=== PATIENT | female | born 1980 | race Hispanic/Latino ===

== ENCOUNTER 2017-12-22 18:55 | Emergency (ER) | payer OTHER ==
[2017-12-22] MEDS ORDERED: ACETAMINOPHEN-CODEINE ELIXIR 5 ML UDCUP ONE (19:25)
[2017-12-22 19:26] LABS: BASOPHILS % (AUTO) 0.4 % (0.0-5.0); EOSINOPHILS % (AUTO) 3.2 % (0.0-8.0); LYMPHOCYTES % (AUTO) 27.9 % (21.0-51.0); MEAN CORPUSCULAR HEMOGLOBIN 28.9 pg (27.0-33.0); MEAN CORPUSCULAR VOLUME 82.6 fL (79-99); MONOCYTES % (AUTO) 5.9 % (3.0-13.0); NEUTROPHILS % (AUTO) 62.6 % (40.0-77.0); PLATELET COUNT (AUTO) 239 K/uL (130-400); RED BLOOD CELL COUNT(AUTO) 4.11 MIL/uL (4.00-5.50); RED CELL DISTRIBUTION WIDTH 14.3 % (11.0-15.5); WHITE BLOOD COUNT (AUTO) 12.3 K/uL (4.8-10.8)
[2017-12-22] MEDS ORDERED: SODIUM CHLORIDE 0.9% 100 ML IV ONE (19:26)
[2017-12-22 19:34] LABS: APPEARANCE,URINE Clear (CLEAR); BILIRUBIN,URINE Negative (NEGATIVE); COLOR,URINE Yellow (YELLOW); GLUCOSE, URINE (UA) Negative (NEGATIVE); KETONES,URINE Negative (NEGATIVE); LEUKOCYTE ESTERASE ,URINE Negative (NEGATIVE); NITRATE,URINE Negative (NEGATIVE); OCCULT BLOOD,URINE Negative (NEGATIVE); PH,URINE 6.5 (5.0-8.0); PROTEIN,URINE Negative (NEGATIVE)
[2017-12-22 19:35] LABS: CREATININE 0.8 mg/dL (0.5-1.5); POTASSIUM 3.7 mmol/L (3.5-5.1)
[2017-12-22 19:40] LABS: ALBUMIN 3.7 g/dL (3.5-5.0); BILIRUBIN,TOTAL 0.2 mg/dL (0.2-1.0); TOTAL PROTEIN, SERUM 7.5 g/dL (6.0-8.3)
[2017-12-22 19:42] LABS: AMPHET/METH SCREEN,URINE NEGATIVE (NEGATIVE); BARBITURATE SCREEN, URINE NEGATIVE (NEGATIVE); BENZODIAZEPINES SCREEN,URINE NEGATIVE (NEGATIVE); CANNABINOID SCREEN,URINE NEGATIVE (NEGATIVE); COCAINE SCREEN,URINE NEGATIVE (NEGATIVE); OPIATE SCREEN,URINE NEGATIVE (NEGATIVE); PHENCYCLIDINE SCREEN,URINE NEGATIVE (NEGATIVE)
== END 2017-12-22 21:58 | disposition home or self-care (01) ==
LOC: EDH 18:55
DX: S01.511A Laceration without foreign body of lip, initial encounter (principal); G40.909 Epilepsy, unspecified, not intractable, without status epilepticus; Z91.013 Allergy to seafood; X58.XXXA Exposure to other specified factors, initial encounter; Y93.89 Activity, other specified; Y92.89 Other specified places as the place of occurrence of the external cause; Y99.8 Other external cause status
CPT/HCPCS: 12051; 36415; 70450; 70486; 80053; 80305; 81003; 81025; 85025; 96365; 96366

== ENCOUNTER 2018-06-01 08:19 | Emergency (ER) | payer MEDICAID ==
[2018-06-01] MEDS ORDERED: FOSPHENYTOIN SODIUM 500 MG/10ML VIAL IJ ONE (11:01)
[2018-06-01] MEDS ORDERED: SODIUM CHLORIDE 0.9% 500ML 0 ML IV ONE (11:01)
[2018-06-01] MEDS ORDERED: SODIUM CHLORIDE 0.9% 250 ML IV ONE (11:04)
== END 2018-06-01 12:38 | disposition home or self-care (01) ==
LOC: EDH 08:19
DX: G40.909 Epilepsy, unspecified, not intractable, without status epilepticus (principal); S09.8XXA Other specified injuries of head, initial encounter; R89.2 Abnormal level of other drugs, medicaments and biological substances in specimens from other organs, systems and tissues; Z91.013 Allergy to seafood; X58.XXXA Exposure to other specified factors, initial encounter; Y93.89 Activity, other specified; Y92.89 Other specified places as the place of occurrence of the external cause; Y99.8 Other external cause status
CPT/HCPCS: 36415; 70450; 80185; 81025; 96365; 99285; J7030; Q2009; J7040

== ENCOUNTER 2018-06-10 17:53 | Emergency (ER) | payer MEDICAID ==
[2018-06-10 18:42] LABS: CREATININE 0.9 mg/dL (0.5-1.5)
[2018-06-10 18:46] LABS: ALBUMIN 3.9 g/dL (3.5-5.0); BILIRUBIN,TOTAL 0.2 mg/dL (0.2-1.0); PHENYTOIN (DILANTIN) 2.7 mcg/mL (10.0-20.0); TOTAL PROTEIN, SERUM 7.5 g/dL (6.0-8.3)
[2018-06-10 18:56] LABS: BASOPHILS % (AUTO) 0.7 % (0.0-5.0); EOSINOPHILS % (AUTO) 4.1 % (0.0-8.0); HEMATOCRIT 35.6 % (36-48); LYMPHOCYTES % (AUTO) 39.9 % (21.0-51.0); MEAN CORPUSCULAR HEMOGLOBIN 28.4 pg (27.0-33.0); MEAN CORPUSCULAR HGB CONC 34.3 g/dL (32.0-36.0); MEAN CORPUSCULAR VOLUME 82.8 fL (79-99); MONOCYTES % (AUTO) 7.8 % (3.0-13.0); NEUTROPHILS % (AUTO) 47.5 % (40.0-77.0); NUCLEATED RED BLOOD CELLS 0.1 % (0.0-0.19); PLATELET COUNT (AUTO) 233 K/uL (130-400); RED CELL DISTRIBUTION WIDTH 14.3 % (11.0-15.5); WHITE BLOOD COUNT (AUTO) 8.2 K/uL (4.8-10.8)
[2018-06-10] MEDS ORDERED: SODIUM CHLORIDE 0.9% IV ONE (21:00)
[2018-06-10] MEDS ORDERED: PHENYTOIN SODIUM IV ONE (21:00)
[2018-06-10] MEDS ORDERED: PHENYTOIN SODIUM 100 MG ERCAP PO ONE (21:04)
== END 2018-06-10 21:38 | disposition home or self-care (01) ==
LOC: EDH 17:53
DX: G40.802 Other epilepsy, not intractable, without status epilepticus (principal); M26.622 Arthralgia of left temporomandibular joint; M54.12 Radiculopathy, cervical region; S01.552A Open bite of oral cavity, initial encounter; S80.11XA Contusion of right lower leg, initial encounter; M79.602 Pain in left arm; Z91.013 Allergy to seafood; Z79.899 Other long term (current) drug therapy; Y04.1XXA Assault by human bite, initial encounter; Y93.01 Activity, walking, marching and hiking; Y92.090 Kitchen in other non-institutional residence as the place of occurrence of the external cause; Y99.8 Other external cause status
CPT/HCPCS: 36415; 72125; 80053; 80185; 85025; 96365; 99285; J1165

== ENCOUNTER 2018-08-30 14:04 | Emergency (ER) | payer MEDICAID, OTHER ==
[2018-08-30 14:41] LABS: BASOPHILS % (AUTO) 0.8 % (0.0-5.0); EOSINOPHILS % (AUTO) 2.9 % (0.0-8.0); HEMATOCRIT 37.2 % (36-48); LYMPHOCYTES % (AUTO) 30.7 % (21.0-51.0); MEAN CORPUSCULAR HEMOGLOBIN 28.8 pg (27.0-33.0); MEAN CORPUSCULAR VOLUME 84.6 fL (79-99); MONOCYTES % (AUTO) 5.4 % (3.0-13.0); NEUTROPHILS % (AUTO) 60.2 % (40.0-77.0); PLATELET COUNT (AUTO) 232 K/uL (130-400); RED CELL DISTRIBUTION WIDTH 13.6 % (11.0-15.5); WHITE BLOOD COUNT (AUTO) 7.2 K/uL (4.8-10.8)
[2018-08-30 14:56] LABS: CREATININE 0.7 mg/dL (0.5-1.5); POTASSIUM 4.1 mmol/L (3.5-5.1)
[2018-08-30 15:01] LABS: ALBUMIN 3.9 g/dL (3.5-5.0); BILIRUBIN,TOTAL 0.2 mg/dL (0.2-1.0); PHENYTOIN (DILANTIN) 5.5 mcg/mL (10.0-20.0); TOTAL PROTEIN, SERUM 7.9 g/dL (6.0-8.3)
[2018-08-30] MEDS ORDERED: PHENYTOIN SODIUM 100 MG ERCAP PO ONE (15:34)
[2018-08-30 15:43] LABS: APPEARANCE,URINE CLOUDY (CLEAR); BILIRUBIN,URINE NEGATIVE (NEGATIVE); GLUCOSE, URINE (UA) NEGATIVE (NEGATIVE); KETONES,URINE NEGATIVE (NEGATIVE); LEUKOCYTE ESTERASE ,URINE NEGATIVE (NEGATIVE); NITRATE,URINE NEGATIVE (NEGATIVE); OCCULT BLOOD,URINE LARGE (NEGATIVE); PROTEIN,URINE NEGATIVE (NEGATIVE); UROBILINOGEN,URINE 0.2 mg/dL (0.2-1.0)
[2018-08-30 15:51] LABS: AMPHET/METH SCREEN,URINE NEGATIVE (NEGATIVE); BARBITURATE SCREEN, URINE NEGATIVE (NEGATIVE); BENZODIAZEPINES SCREEN,URINE NEGATIVE (NEGATIVE); CANNABINOID SCREEN,URINE NEGATIVE (NEGATIVE); COCAINE SCREEN,URINE NEGATIVE (NEGATIVE); OPIATE SCREEN,URINE NEGATIVE (NEGATIVE); PHENCYCLIDINE SCREEN,URINE NEGATIVE (NEGATIVE)
[2018-08-30 16:01] LABS: COLOR,URINE ORANGE (YELLOW)
[2018-08-30 16:55] LABS: BACTERIA,URINE Rare /HPF (None Seen); RBC,URINE >100 /HPF (0-1); SQUAMOUS EPITHELIAL CELL,UR Few /HPF (0-2); WBC,URINE 0-1 /HPF (0-1)
== END 2018-08-30 16:35 | disposition home or self-care (01) ==
LOC: EDH 14:04
DX: S01.512A Laceration without foreign body of oral cavity, initial encounter (principal); G40.909 Epilepsy, unspecified, not intractable, without status epilepticus; Z91.013 Allergy to seafood; W18.39XA Other fall on same level, initial encounter; Y93.89 Activity, other specified; Y92.098 Other place in other non-institutional residence as the place of occurrence of the external cause; Y99.8 Other external cause status
CPT/HCPCS: 36415; 80053; 80185; 80305; 81001; 81025; 85025

== ENCOUNTER 2018-11-21 14:46 | Emergency (ER) | payer OTHER ==
[~2018-11-21] VITALS: Ht 160 cm; Wt 77.1 kg
[2018-11-21 16:29] LABS: BASOPHILS % (AUTO) 0.4 % (0.0-5.0); EOSINOPHILS % (AUTO) 4.2 % (0.0-8.0); HEMATOCRIT 36.6 % (36-48); LYMPHOCYTES % (AUTO) 38.1 % (21.0-51.0); MEAN CORPUSCULAR HEMOGLOBIN 28.7 pg (27.0-33.0); MEAN CORPUSCULAR HGB CONC 33.8 g/dL (32.0-36.0); MEAN CORPUSCULAR VOLUME 84.9 fL (79-99); MONOCYTES % (AUTO) 6.2 % (3.0-13.0); NEUTROPHILS % (AUTO) 51.1 % (40.0-77.0); NUCLEATED RED BLOOD CELLS 0.1 % (0.0-0.19); PLATELET COUNT (AUTO) 175 K/uL (130-400); RED CELL DISTRIBUTION WIDTH 13.7 % (11.0-15.5); WHITE BLOOD COUNT (AUTO) 5.4 K/uL (4.8-10.8)
[2018-11-21 16:36] LABS: APPEARANCE,URINE Clear (CLEAR); BILIRUBIN,URINE Negative (NEGATIVE); COLOR,URINE Yellow (YELLOW); GLUCOSE, URINE (UA) Negative (NEGATIVE); KETONES,URINE Negative (NEGATIVE); LEUKOCYTE ESTERASE ,URINE Negative (NEGATIVE); NITRATE,URINE Negative (NEGATIVE); OCCULT BLOOD,URINE Negative (NEGATIVE); PH,URINE 5.5 (5.0-8.0); PROTEIN,URINE Negative (NEGATIVE); UROBILINOGEN,URINE 0.2 mg/dL (0.2-1.0)
[2018-11-21 16:40] LABS: HCG,QUAL RESULT NEGATIVE (NEGATIVE)
[2018-11-21 16:40] LABS: CREATININE 0.9 mg/dL (0.5-1.5)
[2018-11-21 16:44] LABS: AMPHET/METH SCREEN,URINE NEGATIVE (NEGATIVE); BARBITURATE SCREEN, URINE NEGATIVE (NEGATIVE); BENZODIAZEPINES SCREEN,URINE NEGATIVE (NEGATIVE); CANNABINOID SCREEN,URINE NEGATIVE (NEGATIVE); COCAINE SCREEN,URINE NEGATIVE (NEGATIVE); OPIATE SCREEN,URINE NEGATIVE (NEGATIVE); PHENCYCLIDINE SCREEN,URINE NEGATIVE (NEGATIVE)
[2018-11-21 16:45] LABS: ALBUMIN 3.7 g/dL (3.5-5.0); BILIRUBIN,TOTAL 0.1 mg/dL (0.2-1.0); TOTAL PROTEIN, SERUM 7.3 g/dL (6.0-8.3)
[2018-11-21 17:01] LABS: PHENYTOIN (DILANTIN) 0.7 mcg/mL (10.0-20.0)
[2018-11-21] MEDS ORDERED: FOSPHENYTOIN SODIUM 500 MG/10ML VIAL IJ ONE (17:51)
[2018-11-21] MEDS ORDERED: KETOROLAC TROMETHAMINE 30MG/ML ONE (17:51)
== END 2018-11-21 19:02 | disposition home or self-care (01) ==
LOC: EDH 14:46
DX: G40.909 Epilepsy, unspecified, not intractable, without status epilepticus (principal); Z98.890 Other specified postprocedural states; Z91.013 Allergy to seafood
CPT/HCPCS: 36415; 80053; 80185; 80305; 81003; 81025; 82550; 85025; 96374; 96375; 99283; J1885; Q2009

== ENCOUNTER 2019-01-17 13:45 | Inpatient (IN) | payer SELFPAY ==
[~2019-01-17] VITALS: Ht 160 cm; Wt 76.7 kg
[2019-01-17] MEDS ORDERED: PHENYTOIN SODIUM 100 MG ERCAP PO ONE (15:08)
[2019-01-17] MEDS ORDERED: HYDROCODONE/ACETAMINOPHEN 10/325 MG TAB ONE (16:58)
[2019-01-17] MEDS ORDERED: ONDANSETRON HCL 4 MG/2 ML VIAL ONE ×2 (17:25→21:25)
[2019-01-17] MEDS ORDERED: MORPHINE SULFATE 4 MG/1ML SYG ONE (17:25)
[2019-01-17] MEDS ORDERED: SODIUM CHLORIDE 0.9% 1000ML 1,000 ML IV ONE (17:26)
[2019-01-17 17:32] LABS: BASOPHILS % (AUTO) 0.5 % (0.0-5.0); EOSINOPHILS % (AUTO) 0.6 % (0.0-8.0); HEMATOCRIT 37.8 % (36-48); LYMPHOCYTES % (AUTO) 11.5 % (21.0-51.0); MEAN CORPUSCULAR HEMOGLOBIN 29.1 pg (27.0-33.0); MEAN CORPUSCULAR HGB CONC 34.1 g/dL (32.0-36.0); MEAN CORPUSCULAR VOLUME 85.4 fL (79-99); MONOCYTES % (AUTO) 3.7 % (3.0-13.0); NEUTROPHILS % (AUTO) 83.7 % (40.0-77.0); PLATELET COUNT (AUTO) 229 K/uL (130-400); RED BLOOD CELL COUNT(AUTO) 4.42 MIL/uL (4.00-5.50); RED CELL DISTRIBUTION WIDTH 13.7 % (11.0-15.5); WHITE BLOOD COUNT (AUTO) 11.2 K/uL (4.8-10.8)
[2019-01-17 17:37] LABS: CREATININE 0.7 mg/dL (0.5-1.5)
[2019-01-17 17:39] LABS: INR 0.99 (0.85-1.15); PARTIAL THROMBOPLASTIN TIME 28.8 SEC (26.3-35.5); PROTHROMBIN TIME 10.4 SEC (9.6-11.6)
[2019-01-17 17:42] LABS: ALBUMIN 4.1 g/dL (3.5-5.0); BILIRUBIN,TOTAL 0.3 mg/dL (0.2-1.0); TOTAL PROTEIN, SERUM 7.8 g/dL (6.0-8.3)
[2019-01-17] MEDS ORDERED: LORAZEPAM 2 MG/ML 1 ML VIAL IM PRN (20:00)
[2019-01-17] MEDS ORDERED: ACETAMINOPHEN 325 MG TAB PO PRN ×2 (20:00)
[2019-01-17] MEDS ORDERED: MORPHINE SULFATE 2 MG/ML 1ML SYG IV PRN (20:00)
[2019-01-17 22:32] VITALS: BP 117/69
[2019-01-17] MEDS: LEVETIRACETAM 1,000 MG in SODIUM CHLORIDE 0.9% 100 ML IV SCH (23:07)
[2019-01-17] MEDS: FAMOTIDINE/PF 20 MG/2 ML VIAL IV SCH (23:07)
[2019-01-17] MEDS: MORPHINE SULFATE 4 MG/1ML SYG IV PRN (23:15)
[2019-01-17] MEDS ORDERED: PHEN100C23 PO (23:28)
[2019-01-18] MEDS: MORPHINE SULFATE 4 MG/1ML SYG IV PRN ×3 (02:20→20:36)
[2019-01-18 03:15] VITALS: BP 114/76
[2019-01-18] MEDS: LEVETIRACETAM 1,000 MG in SODIUM CHLORIDE 0.9% 100 ML IV SCH (05:52)
--- NOTE | 2019-01-18 07:15 | NUR ---
NEUROSURGEON DR. BRADLEY IN TO SEE PATIENT. NO NEW ORDERS AT THIS TIME.
[2019-01-18 08:06] VITALS: BP 121/80
[2019-01-18] MEDS ORDERED: COMPOUND IV MISC 1 EACH IVSOLN MISC PRN (08:15)
[2019-01-18] MEDS: FAMOTIDINE/PF 20 MG/2 ML VIAL IV SCH ×2 (09:18→20:36)
[2019-01-18] MEDS: PHENYTOIN SODIUM 100 MG ERCAP PO SCH ×2 (09:19→20:36)
[2019-01-18] MEDS: LEVETIRACETAM 500 MG in SODIUM CHLORIDE 0.9% 100 ML IV SCH ×2 (09:20→20:35)
--- NOTE | 2019-01-18 10:35 | NUR ---
DR. KIRK BRADLEY IN TO SPEAK TO PATIENT AGAIN. DISCUSSED TRANSFERRING HER TO [facility] TO SEE DR. SANZ. SYSTEM SAFETY ENGINEER HAS BEEN NOTIFIED AND RADIOLOGY HAS BEEN NOTIFIED TO MAKE A DISC WITH ALL RADIOLOGICAL IMAGES.
--- NOTE | 2019-01-18 11:04 | NUR ---
DCP CM met with pt discussed dc plans. Pt is independent prior to admission, live at home with spouse and children. Denies any equipments/services. Pt feels safe to go back home, spouse able to assist w/transportation and needs as necessary. Pt is a self pay, states she usually goes to [facility]/any outpatient clinic for her meds, given community resources, [facility] assisting. DC plan to home once stable. CM to cont to follow up. Addendum: 01/18/19 at 1106 by MANAS HERRERA LVN CM Amended: Links added.
--- NOTE | 2019-01-18 12:02 | NUR ---
1030 Transfers request to R under dr Erickson. 1130 chart review and information fax to R. spoke to R Intake nurse Sanaz lei states no beds but will speak with director and will call back. 1145 Sanaz call back with a denial full to capacity and as per physician executive DR Perez and does not for see any openings for inpt beds. primary nurse made aware. Loyda Maharaj
[2019-01-18 12:46] VITALS: BP 122/76
--- NOTE | 2019-01-18 12:57 | NUR ---
0739 call received from [facility] intake nurse Sanaz states DR Erickson spoke with there executive physician and they will be working on a surgical bed will call back when bed available. primary nurse made aware . Nicko watt
[2019-01-18 16:22] VITALS: BP 121/78
[2019-01-18] MEDS: ONDANSETRON HCL 4 MG/2 ML VIAL IV PRN ×2 (16:30→20:36)
[2019-01-18 19:39] VITALS: BP 117/74
--- NOTE | 2019-01-18 21:45 | NUR ---
Jared RECEIVED A CALL FROM LEAK OPERATOR [employer]IN [employer]ANT AT [facility]. PATIENT HAS BEEN ACCEPTED FOR TRANSFER TO ROOM 211. REPORT: [phone]
--- NOTE | 2019-01-18 22:35 | NUR ---
EMS CALLED FOR TRANSPORT
--- NOTE | 2019-01-18 23:40 | NUR ---
PT TRANSFERRED TO [facility]. REPORT CALLED TO ISAAC FOREMAN AT [facility]. EMS IN PT ROOM. FAMILY MEMBERS AT BEDSIDE. PT AWAKE, GEORGE AND RESPONSIVE, NO C/O PAIN OR DISCOMFORT AT THIS TIME. PT TRANSFERRED WITH 20G IV TO RIGHT ARM, AND COLLAR IN PLACE.
== END 2019-01-18 23:45 | disposition short-term general hospital (02) | DRG 552 ==
LOC: EDH 13:45 → EDHIP 13:46 → 4AH 20:18
PROVIDERS: ADMIT Internal Medicine; ATTEND Internal Medicine
DX: S12.040A Displaced lateral mass fracture of first cervical vertebra, initial encounter for closed fracture (principal); F17.200 Nicotine dependence, unspecified, uncomplicated; G40.909 Epilepsy, unspecified, not intractable, without status epilepticus; S00.531A Contusion of lip, initial encounter; W19.XXXA Unspecified fall, initial encounter; Y93.89 Activity, other specified; Y92.89 Other specified places as the place of occurrence of the external cause; Y99.8 Other external cause status; Z91.013 Allergy to seafood; Z91.19 Patient's noncompliance with other medical treatment and regimen
CPT/HCPCS: 36415; 70450; 72125; 80053; 80185; 81025; 85025; 85610; 85730; G0378; J1953; J2270; J2405; J3490; J7030

== ENCOUNTER 2019-02-24 11:40 | Emergency (ER) | payer MEDICAID, OTHER ==
[~2019-02-24 11:40] MED LIST: PHEN100C23 PO
[2019-02-24 12:52] LABS: BASOPHILS % (AUTO) 0.7 % (0.0-5.0); EOSINOPHILS % (AUTO) 4.4 % (0.0-8.0); HEMATOCRIT 35.1 % (36-48); LYMPHOCYTES % (AUTO) 25.3 % (21.0-51.0); MEAN CORPUSCULAR HGB CONC 34.6 g/dL (32.0-36.0); MONOCYTES % (AUTO) 5.3 % (3.0-13.0); NEUTROPHILS % (AUTO) 64.3 % (40.0-77.0); NUCLEATED RED BLOOD CELLS 0.1 % (0.0-0.19); PLATELET COUNT (AUTO) 234 K/uL (130-400); RED BLOOD CELL COUNT(AUTO) 4.18 MIL/uL (4.00-5.50); RED CELL DISTRIBUTION WIDTH 13.4 % (11.0-15.5); WHITE BLOOD COUNT (AUTO) 7.6 K/uL (4.8-10.8)
[2019-02-24 13:03] LABS: CREATININE 0.7 mg/dL (0.5-1.5); POTASSIUM 4.1 mmol/L (3.5-5.1)
[2019-02-24] MEDS ORDERED: ACETAMINOPHEN 325 MG TAB ONE (13:03)
[2019-02-24] MEDS ORDERED: LEVETIRACETAM 500 MG TABLET PO ONE (13:03)
[2019-02-24 13:24] LABS: APPEARANCE,URINE Clear (CLEAR); BILIRUBIN,URINE Negative (NEGATIVE); COLOR,URINE Yellow (YELLOW); GLUCOSE, URINE (UA) Negative (NEGATIVE); HCG,QUAL RESULT NEGATIVE (NEGATIVE); KETONES,URINE Negative (NEGATIVE); LEUKOCYTE ESTERASE ,URINE Negative (NEGATIVE); NITRATE,URINE Negative (NEGATIVE); OCCULT BLOOD,URINE Negative (NEGATIVE); PROTEIN,URINE Negative (NEGATIVE); UROBILINOGEN,URINE 0.2 mg/dL (0.2-1.0)
[2019-02-24] MEDS ORDERED: METOCLOPRAMIDE 10 MG/2 ML VIAL ONE (13:57)
== END 2019-02-24 16:53 | disposition home or self-care (01) ==
LOC: EDH 11:40
DX: G40.89 Other seizures (principal); R51 Headache; Z91.041 Radiographic dye allergy status; Z91.013 Allergy to seafood
CPT/HCPCS: 36415; 70450; 72125; 80048; 80185; 81003; 81025; 83605; 85025; 96374; 99285; J2765

== ENCOUNTER → 2019-04-10 | Outpatient (CLI) | payer MEDICAID | END | disposition home or self-care (01) | LOC: RAH 10:38 | PROVIDERS: ATTEND Family Medicine | DX: R14.0 Abdominal distension (gaseous) (principal); R10.9 Unspecified abdominal pain | CPT/HCPCS: 76700 ==

== ENCOUNTER 2021-01-03 23:15 | Emergency (ER) | payer MEDICAID ==
[2021-01-03 23:42] LABS: BASOPHILS % (AUTO) 0.6 % (0.0-5.0); EOSINOPHILS % (AUTO) 3.3 % (0.0-8.0); HEMATOCRIT 36.1 % (36-48); LYMPHOCYTES % (AUTO) 24.4 % (21.0-51.0); MEAN CORPUSCULAR HEMOGLOBIN 27.8 pg (27.0-33.0); MEAN CORPUSCULAR HGB CONC 32.7 g/dL (32.0-36.0); MEAN CORPUSCULAR VOLUME 84.9 fL (79-99); MONOCYTES % (AUTO) 6.8 % (3.0-13.0); NEUTROPHILS % (AUTO) 64.4 % (40.0-77.0); PLATELET COUNT (AUTO) 229 K/uL (130-400); RED BLOOD CELL COUNT(AUTO) 4.25 MIL/uL (4.00-5.50); RED CELL DISTRIBUTION WIDTH 13.1 % (11.0-15.5); WHITE BLOOD COUNT (AUTO) 9.6 K/uL (4.8-10.8)
[2021-01-03 23:47] LABS: APPEARANCE,URINE Clear (CLEAR); BILIRUBIN,URINE Negative (NEGATIVE); COLOR,URINE Yellow (YELLOW); GLUCOSE, URINE (UA) Negative (NEGATIVE); KETONES,URINE Negative (NEGATIVE); LEUKOCYTE ESTERASE ,URINE Trace (NEGATIVE); NITRATE,URINE Negative (NEGATIVE); OCCULT BLOOD,URINE Negative (NEGATIVE); PH,URINE 6.5 (5.0-8.0); PROTEIN,URINE Negative (NEGATIVE); UROBILINOGEN,URINE 0.2 mg/dL (0.2-1.0)
[2021-01-03 23:50] LABS: CREATININE 0.8 mg/dL (0.5-1.5)
[2021-01-03 23:50] LABS: HCG,QUAL RESULT NEGATIVE (NEGATIVE)
[2021-01-03 23:52] LABS: PHENYTOIN (DILANTIN) 7.2 mcg/mL (10.0-20.0)
[2021-01-03 23:56] LABS: AMPHET/METH SCREEN,URINE NEGATIVE (NEGATIVE); BARBITURATE SCREEN, URINE NEGATIVE (NEGATIVE); BENZODIAZEPINES SCREEN,URINE NEGATIVE (NEGATIVE); CANNABINOID SCREEN,URINE NEGATIVE (NEGATIVE); COCAINE SCREEN,URINE NEGATIVE (NEGATIVE); OPIATE SCREEN,URINE NEGATIVE (NEGATIVE); PHENCYCLIDINE SCREEN,URINE NEGATIVE (NEGATIVE)
[2021-01-04 00:07] LABS: BACTERIA,URINE Few /HPF (None Seen); RBC,URINE None Seen /HPF (0-1); SQUAMOUS EPITHELIAL CELL,UR Moderate /HPF (0-2); WBC,URINE 0-1 /HPF (0-1)
[2021-01-04] MEDS ORDERED: ACETAMINOPHEN EXTRA STRENGTH 500 MG TABLET ONE (00:14)
[2021-01-04] MEDS ORDERED: FOSPHENYTOIN SODIUM 500 MG/10ML VIAL IJ ONE (01:15)
[2021-01-04] MEDS ORDERED: SODIUM CHLORIDE 0.9% 1000ML 1,000 ML IV ONE (01:15)
[2021-01-04] MEDS ORDERED: SODIUM CHLORIDE 0.9% 250 ML IV ONE (01:16)
== END 2021-01-04 02:46 | disposition home or self-care (01) ==
LOC: EDH 23:15
DX: G40.89 Other seizures (principal); S09.90XA Unspecified injury of head, initial encounter; E86.0 Dehydration; Z90.13 Acquired absence of bilateral breasts and nipples; Z91.040 Latex allergy status; W18.39XA Other fall on same level, initial encounter; Y93.89 Activity, other specified; Y92.89 Other specified places as the place of occurrence of the external cause; Y99.8 Other external cause status
CPT/HCPCS: 36415; 70450; 70486; 80048; 80185; 80305; 81001; 81025; 85025; 96365; 99285; J7030; J7050; Q2009

== ENCOUNTER 2021-08-04 13:47 | Emergency (ER) | payer MEDICAID ==
[~2021-08-04] VITALS: Ht 160 cm; Wt 80.7 kg
[2021-08-04 14:22] LABS: BASOPHILS % (AUTO) 0.6 % (0.0-5.0); EOSINOPHILS % (AUTO) 1.3 % (0.0-8.0); HEMATOCRIT 35.6 % (36-48); LYMPHOCYTES % (AUTO) 16.2 % (21.0-51.0); MEAN CORPUSCULAR HEMOGLOBIN 28.3 pg (27.0-33.0); MEAN CORPUSCULAR VOLUME 83.4 fL (79-99); MONOCYTES % (AUTO) 5.2 % (3.0-13.0); NEUTROPHILS % (AUTO) 75.6 % (40.0-77.0); PLATELET COUNT (AUTO) 237 K/uL (130-400); RED BLOOD CELL COUNT(AUTO) 4.27 MIL/uL (4.00-5.50); RED CELL DISTRIBUTION WIDTH 13.2 % (11.0-15.5); WHITE BLOOD COUNT (AUTO) 10.4 K/uL (4.8-10.8)
[2021-08-04] MEDS ORDERED: LORAZEPAM 2 MG/ML 1 ML VIAL IVP SCH (14:30)
[2021-08-04] MEDS ORDERED: MORPHINE 2 MG SYG IVP SCH (14:30)
[2021-08-04] MEDS ORDERED: ONDANSETRON 4MG INJ IVP SCH (14:30)
[2021-08-04] MEDS ORDERED: TETANUS/DIPHTHERIA TOXOID [ADULT] 0.5 ML VIAL IM SCH (14:30)
[2021-08-04 14:34] LABS: CREATININE 0.8 mg/dL (0.5-1.5); POTASSIUM 4.3 mmol/L (3.5-5.1)
[2021-08-04 14:39] LABS: ALBUMIN 3.9 g/dL (3.5-5.0); BILIRUBIN,TOTAL 0.3 mg/dL (0.2-1.0); CRP QUANTITATIVE 3.9 mg/L (0.00-9.0); TOTAL PROTEIN, SERUM 7.9 g/dL (6.0-8.3)
[2021-08-04] MEDS ORDERED: LEVETIRACETAM 500 MG TABLET PO ONE (15:11)
[2021-08-04] MEDS ORDERED: LEVE-43 PO (15:42)
[2021-08-04] MEDS ORDERED: ACET-2247 PO (15:42)
[2021-08-04] MEDS ORDERED: LEVETIRACETAM 500 MG TABLET PO SCH (16:15)
[2021-08-04 17:16] VITALS: BP 116/81
[2021-08-04] MEDS ORDERED: LEVETIRACETAM 1,500 MG in 0.9%NACL 100ML 100 ML IV SCH (22:00)
== END 2021-08-04 17:36 | disposition home or self-care (01) ==
LOC: EDH 13:47
DX: S00.83XA Contusion of other part of head, initial encounter (principal); S00.511A Abrasion of lip, initial encounter; R56.9 Unspecified convulsions; Z91.041 Radiographic dye allergy status; Z91.013 Allergy to seafood; Z79.899 Other long term (current) drug therapy; W18.39XA Other fall on same level, initial encounter; Y93.89 Activity, other specified; Y92.89 Other specified places as the place of occurrence of the external cause; Y99.8 Other external cause status
CPT/HCPCS: 36415; 70450; 70486; 71045; 72125; 80053; 84484; 84703; 85025; 86140; 90471; 90714; 93005; 96374; 96375; 99285; J2060; J2405; J1953

== ENCOUNTER 2022-02-03 15:51 | Emergency (ER) | payer MEDICAID ==
[~2022-02-03] VITALS: Ht 160 cm; Wt 83.9 kg
[~2022-02-03 15:51] MED LIST changes: +ACET-2247 PO; +LEVE-43 PO
[2022-02-03] MEDS ORDERED: TETRACAINE HCL 0.5% 4 ML OPHTH SOLN ONE (17:14)
[2022-02-03] MEDS ORDERED: FLUORESCEIN SODIUM 1 STRIP STRIP ONE (17:14)
[2022-02-03] MEDS ORDERED: ERYT1OIN7 OP (17:41)
[2022-02-03] MEDS ORDERED: IBUP-2070 PO (17:41)
[2022-02-03 17:50] VITALS: BP 124/87
[2022-02-03] MEDS ORDERED: ERYTHROMYCIN BASE 0.5% OPHTH OINT 1 GM TUBE OU SCH (18:00)
[2022-02-03] MEDS ORDERED: IBUPROFEN 600 MG TABLET PO ONE (18:00)
== END 2022-02-03 18:06 | disposition home or self-care (01) ==
LOC: EDH 15:51
DX: H10.9 Unspecified conjunctivitis (principal); Z88.8 Allergy status to other drugs, medicaments and biological substances; Z91.018 Allergy to other foods; Z79.899 Other long term (current) drug therapy; Z98.890 Other specified postprocedural states

== ENCOUNTER 2022-12-15 15:09 | Emergency (ER) | payer MEDICAID ==
[~2022-12-15] VITALS: Ht 160 cm; Wt 81.6 kg
[~2022-12-15 15:09] MED LIST changes: +ERYT1OIN7 OP; +IBUP-2070 PO
[2022-12-15 15:26] VITALS: BP 119/73
[2022-12-15 15:53] LABS: BASOPHILS % (AUTO) 0.4 % (0.0-5.0); HEMATOCRIT 35.8 % (36-48); LYMPHOCYTES % (AUTO) 28.9 % (21.0-51.0); MEAN CORPUSCULAR HEMOGLOBIN 27.5 pg (27.0-33.0); MEAN CORPUSCULAR HGB CONC 33.5 g/dL (32.0-36.0); MEAN CORPUSCULAR VOLUME 82.1 fL (79-99); MONOCYTES % (AUTO) 6.8 % (3.0-13.0); NEUTROPHILS % (AUTO) 60.5 % (40.0-77.0); PLATELET COUNT (AUTO) 243 K/uL (130-400); RED BLOOD CELL COUNT(AUTO) 4.36 MIL/uL (4.00-5.50); RED CELL DISTRIBUTION WIDTH 13.1 % (11.0-15.5)
[2022-12-15 16:06] LABS: POTASSIUM 3.6 mmol/L (3.5-5.1)
[2022-12-15 16:32] LABS: ALBUMIN 3.6 g/dL (3.5-5.0); TOTAL PROTEIN, SERUM 7.5 g/dL (6.0-8.3)
[2022-12-15 19:20] LABS: APPEARANCE,URINE CLEAR (CLEAR); BILIRUBIN,URINE NEGATIVE (NEGATIVE); COLOR,URINE LIGHT-YELLOW (YELLOW); GLUCOSE, URINE (UA) NEGATIVE (NEGATIVE); KETONES,URINE NEGATIVE (NEGATIVE); LEUKOCYTE ESTERASE ,URINE 75 Leu/uL (NEGATIVE); NITRATE,URINE NEGATIVE (NEGATIVE); OCCULT BLOOD,URINE NEGATIVE (NEGATIVE); PH,URINE 5.5 (5.0-8.0); PROTEIN,URINE NEGATIVE (NEGATIVE); UROBILINOGEN,URINE 0.2 mg/dL (0.2-1.0)
[2022-12-15 20:01] LABS: BACTERIA,URINE MOD /HPF (None Seen); MUCUS,URINE RARE LPF (None Seen); SQUAMOUS EPITHELIAL CELL,UR MOD /HPF (0-2)
[2022-12-15] MEDS ORDERED: CEPH500B PO (20:02)
== END 2022-12-15 20:26 | disposition home or self-care (01) ==
LOC: EDH 15:09
DX: O23.41 Unspecified infection of urinary tract in pregnancy, first trimester (principal); N39.0 Urinary tract infection, site not specified; Z3A.08 8 weeks gestation of pregnancy; Z79.1 Long term (current) use of non-steroidal anti-inflammatories (NSAID); Z88.8 Allergy status to other drugs, medicaments and biological substances
CPT/HCPCS: 36415; 76801; 80053; 81001; 84702; 85025; 87088

== ENCOUNTER 2023-06-26 19:25 | Observation (INO) | payer MEDICAID ==
[~2023-06-26] VITALS: Ht 160 cm; Wt 86.2 kg
[~2023-06-26 19:25] MED LIST changes: +CEPH500B PO
[2023-06-26 19:26] VITALS: BP 120/89; PULSE 99; RESP 20
[2023-06-26] MEDS ORDERED: OXYTOCIN LR IV ONE (19:46)
[2023-06-26 20:33] LABS: APPEARANCE,URINE CLOUDY (CLEAR); BILIRUBIN,URINE NEGATIVE (NEGATIVE); COLOR,URINE LIGHT-YELLOW (YELLOW); GLUCOSE, URINE (UA) NEGATIVE (NEGATIVE); KETONES,URINE NEGATIVE (NEGATIVE); LEUKOCYTE ESTERASE ,URINE 25 Leu/uL (NEGATIVE); NITRATE,URINE NEGATIVE (NEGATIVE); OCCULT BLOOD,URINE NEGATIVE (NEGATIVE); PH,URINE 5.5 (5.0-8.0); PROTEIN,URINE NEGATIVE (NEGATIVE); UROBILINOGEN,URINE 0.2 mg/dL (0.2-1.0)
[2023-06-26 20:40] LABS: ADD UA MICROSCOPIC YES
[2023-06-26 20:42] LABS: BACTERIA,URINE MOD /HPF (None Seen); MUCUS,URINE FEW LPF (None Seen); RBC,URINE 0-1 /HPF (0-1); SQUAMOUS EPITHELIAL CELL,UR MOD /HPF (0-2)
[2023-06-26 20:53] LABS: AMPHET/METH SCREEN,URINE NEGATIVE (NEGATIVE); BARBITURATE SCREEN, URINE NEGATIVE (NEGATIVE); BENZODIAZEPINES SCREEN,URINE NEGATIVE (NEGATIVE); CANNABINOID SCREEN,URINE NEGATIVE (NEGATIVE); COCAINE SCREEN,URINE NEGATIVE (NEGATIVE); OPIATE SCREEN,URINE NEGATIVE (NEGATIVE); PHENCYCLIDINE SCREEN,URINE NEGATIVE (NEGATIVE)
[2023-06-26] MEDS ORDERED: EPHEDRINE SULFATE 50 MG/ML AMPULE IVP PRN (21:00)
[2023-06-26] MEDS ORDERED: OXYTOCIN-LR 30 UNITS/500ML 500 ML IV SCH (21:00)
[2023-06-26] MEDS ORDERED: DEXTROSE 5%-LACTATED RINGERS 1,000 ML IV PRN (21:00)
[2023-06-26] MEDS ORDERED: MISOPROSTOL 200 MCG TABLET PR SCH ×2 (21:00)
[2023-06-26] MEDS ORDERED: LACTATED RINGERS 500 ML 500 ML IV PRN (21:00)
[2023-06-26] MEDS ORDERED: TRANEXAMIC ACID 1,000 MG in 0.9%NACL 100ML 100 ML IV SCH (21:00)
[2023-06-26] MEDS ORDERED: METHYLERGONOVINE MALEATE 0.2 MG/1 ML ML IM ONE (21:00)
[2023-06-26] MEDS ORDERED: CARBOPROST TROMETHAMINE 250 MCG/ML AMP IM SCH (21:00)
[2023-06-26] MEDS ORDERED: OXYTOCIN 10 UNIT/1ML 10ML VIAL IV ONE (21:00)
[2023-06-26] MEDS ORDERED: NALOXONE HCL 0.4 MG/1 ML ML IV PRN (21:00)
[2023-06-26] MEDS ORDERED: LACTATED RINGERS 1000ML 1,000 ML IV PRN (21:00)
[2023-06-26] MEDS ORDERED: AMPICILLIN 1GM+NS 50ML 50 ML IV SCH (21:00)
[2023-06-26] MEDS ORDERED: AMPICILLIN 2GM+NS 100ML 100 ML IV ONE (22:00)
[2023-06-27] MEDS ORDERED: PROMETHAZINE HCL 25 MG/ML 1ML AMPULE IM PRN (03:00)
[2023-06-27] MEDS ORDERED: MEPERIDINE-PF 50 MG/ML SYG IM PRN (03:00)
[2023-06-27 06:50] LABS: HEMATOCRIT 31.5 % (36-48); MEAN CORPUSCULAR HEMOGLOBIN 26.4 pg (27.0-33.0); MEAN CORPUSCULAR HGB CONC 32.1 g/dL (32.0-36.0); MEAN CORPUSCULAR VOLUME 82.5 fL (79-99); RED BLOOD CELL COUNT(AUTO) 3.82 MIL/uL (4.00-5.50); RED CELL DISTRIBUTION WIDTH 14.1 % (11.0-15.5); WHITE BLOOD COUNT (AUTO) 9.9 K/uL (4.8-10.8)
[2023-06-27 07:15] LABS: HIV 1&2 ANTIBODY Non-Reactive (Negative); HIV-1 p24 Antigen Non-Reactive (Negative)
[2023-06-27 10:51] LABS: RAPID PLASMA REAGIN NONREACTIVE (NONREACTIVE)
== END 2023-06-27 10:50 | disposition home or self-care (01) ==
LOC: EDH 19:25 → LDH 19:42 → INTOOBSV 19:42 → OBSVTOIN 19:42
PROVIDERS: ADMIT Obstetrics & Gynecology; ATTEND Obstetrics & Gynecology
DX: O62.9 Abnormality of forces of labor, unspecified (principal); O26.853 Spotting complicating pregnancy, third trimester; O60.03 Preterm labor without delivery, third trimester; Z3A.35 35 weeks gestation of pregnancy; Z79.899 Other long term (current) drug therapy
CPT/HCPCS: 96365; 80305; 85027; 86592; 86850; 86900; 86901; 87340; 86701; 87390; 81001; 36415; 96372; 96366; 59025; G0378 ×15; G0379; J0290 ×2; J7120; J2550; J2175; 96360; 96361